=== PATIENT | male | born 1950 | race Caucasian/White ===

== ENCOUNTER 2016-08-28 21:01 | Inpatient (IN) | payer MEDICARE, OTHER ==
--- NOTE | ~2016-08-28 | DS ---
Discharge Summary [facility] [address] [place]. [address] NAME: AVELINO MARIE III : 48 STATUS : DIS IN PAT#: [id number] AGE: 66 ADM/REG DATE : 08/28/16 MR#: [id number] REPORT SERV DATE: 08/31/16 DICTATED BY: SHARRI LEIGH DATE: 08/30/16 REPORT STATUS : Draft TRANSCRIBED BY: MODCharmaine DATE: 08/30/16 ADMISSION DATE: 08/28/2016 DISCHARGE DATE: 08/30/2016 HOSPITAL COURSE: A 66-year-old male with known history of spondylolisthesis, status post lumbar surgery several years ago; known history of questionable alcohol intake, he takes half a pint of Double Whiskey a day. Does not want any Librium or Ativan. Has Ativan at home. Known history of hydrocodone addiction and previous surgeries. Not had any rehab. The patient comes in, primary care doctor, after being overly sedentary, some depression from ex-. Had venous Doppler ultrasound, extensive DVT extending from lower calf of the left all the way up to the midthigh. The patient states he lifts weights and takes testosterone. Placed on IV heparin. Xarelto will be transitioned, as the patient does not want Coumadin, therefore, does not need daily INRs or every week INRs. The patient has high alcohol usage. Placed the patient on Librium. Ativan, did not want. States he will try to lower his drinking and told him the risks. Did not see interaction. Issues with ethanol and Xarelto. Will follow up with Vascular Surgery. The patient did not want any tPA, did not seem to need any. Did not have any compartment syndrome. Did not have any lack of sensation in his left lower extremity. Did not have any overt signs of cyanosis. FOLLOWUP: With PCP in two weeks. Consideration of possible reduction of alcohol as well as depression management. Case Management to speak to the patient about affordability. Discharge home. Xarelto 15 p.o. b.i.d. and discontinue heparin. She has Xarelto filled prior to discharge. DISCHARGE MEDICATIONS: Allopurinol 100 p.o. daily; Xanax 1 mg p.o. t.i.d. p.r.n., has at home; Ativan 2 to 3 mg p.o. q.h.s., has at home. We will try to reduce both benzos as an outpatient. Deferred to PCP. Folic acid 1 mg p.o. daily. Clobetasol. Multivitamin one tablet p.o. daily. Thiamine 100 mg p.o. daily. Get [id number] tadalafil p.r.n., Colace p.r.n., Lortab 10/325 p.o. t.i.d. p.r.n. has at home. We will try to reduce as an outpatient. Yuliana, has as an outpatient. Xarelto 15 p.o. b.i.d. for 21 days and then Xarelto 20 p.o. daily. Would stop the testosterone. Increased risk of DVT. DISCHARGE DIAGNOSES: Acute deep vein thrombosis, alcohol use in the past, gout, depression, spondylolisthesis. All questions were answered. Took well over 30 minutes to do. WST/MODL Discharge Summary [address] [address] NAME: AVELINO MARIE III : 48 STATUS : DIS IN PAT#: [id number] AGE: 66 ADM/REG DATE : 08/28/16 MR#: [id number] REPORT SERV DATE: 08/31/16 DICTATED BY: SHARRI LEIGH DATE: 08/30/16 REPORT STATUS : Draft TRANSCRIBED BY: MODL DATE: 08/30/16 Sharri Leigh DO / [id number] CC: DO JUAN ANTONIO Ventura
--- NOTE | ~2016-08-28 | HP ---
History And Physical [facility] [address] [facility] [place]. [address] NAME: AVELINO MARIE III : 48 STATUS : ADM IN [facility]#: [id number] AGE: 66 ADM/REG DATE : 08/28/16 MR#: [id number] REPORT SERV DATE: 08/29/16 DICTATED BY: LINDA KISER DATE: 08/28/16 REPORT STATUS : Draft TRANSCRIBED BY: TANIA DATE: 08/28/16 DATE OF ADMISSION: 08/28/2016 CHIEF COMPLAINT: Acute left lower extremity DVT. HISTORY OF PRESENT ILLNESS: This is a 66-year-old male with a past medical history of spondylolisthesis, status post lumbar surgery several years ago. However, the patient follows up with a primary care in [place], Dr. Viktor Miller, but currently lives in [place]. The patient states over the past several months. He has been more sedentary sitting six to seven hours a day working on his taxes and performing a lot of reading and later developed increased swelling of his left lower extremity with some discomfort with edema extending past his knee. The patient was seen by his primary care physician, Dr. Viktor Miller at [place] today who suspected a DVT and sent the patient for an outpatient. The patient had a venous Doppler ultrasound with report of an extensive DVT extending from lower calf all the way up to mid thigh. The patient however did not receive a dose of Lovenox at the hospital facility but the patient wanted to return back to [place] to be admitted to [facility] and drove back to [place] and admitted to [facility]. Apparently, the patient was already traveling on the highway when the direct admit was called in to [facility]. The patient currently denies any chest pain. No shortness of breath. He does state that he does lift weights about 3 times a week but mostly sedentary for the majority of the day. With the findings of acute DVT up to mid thigh, PCP was considering Vascular Surgery evaluation with a transfer. PAST MEDICAL HISTORY: Spondylolisthesis and per patient he admits to hydrocodone addiction from previous surgeries and has not had any rehab. PAST SURGICAL HISTORY: Lumbar fusion L4 through S1, bilateral knee repair, and right shoulder replacement. FAMILY HISTORY: Denies any history of clots in the family. There is a history of prostate cancer in grandfather and testicular cancer, son. SOCIAL HISTORY: No tobacco but drinks approximately half a pint of double whiskey a day. He denies any illicit drugs. 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 HOME MEDICATIONS: Please refer to MAR per pharmacy. PHYSICAL EXAMINATION: Temperature of 97.3, blood pressure 160/91 with a pulse of 84, saturating 97% on room air, and respiratory rate of 16. GENERAL: The patient is alert oriented x3, very pleasant. HEENT: Pupils equal, round, and reactive to light. Extraocular muscles are intact. Moist mucous membranes. CARDIOVASCULAR: S1, S2. Regular rate and rhythm. No murmurs, rubs, or gallops. No JVD. History And Physical [address] [address] NAME: AVELINO MARIE III : 48 STATUS : ADM IN [facility]#: [id number] AGE: 66 ADM/REG DATE : 08/28/16 MR#: [id number] REPORT SERV DATE: 08/29/16 DICTATED BY: LINDA KISER DATE: 08/28/16 REPORT STATUS : Draft TRANSCRIBED BY: TANIA DATE: 08/28/16 RESPIRATORY: Clear to auscultation bilaterally. No wheezes or crackles. No signs of tachypnea. ABDOMEN: Positive bowel sounds. Soft, nontender. No rebound. No fluid wave. EXTREMITIES: 2+ pulse, with 2+ edema of the left lower extremity up to mid thigh. NEUROLOGIC: Cranial nerves II through XII grossly intact. Moves all four extremities. No neuro focal deficits. HOME MEDICATIONS: Allopurinol 100 mg p.o. q.a.m., Xanax 1 mg p.o. three times a day p.r.n., Soma 350 mg p.o. three times a day p.r.n., Colace 100 mg p.o. at bedtime, [place] 10 x 325 one tab p.o. three times a day p.r.n., Ativan 2-3 mg p.o. at bedtime as scheduled, Cialis 5 mg p.o. daily, testosterone 200 mg p.o. every 14 days, clobetasol topically at bedtime, and unknown [id number] supplements. LABORATORY DATA: Currently pending. ASSESSMENT AND PLAN: 1. Acute lower left extremity DVT. 2. Alcohol, high alcohol usage. 3. We will hold the patient's testosterone, which most likely increased the risk of the patient on DVT as well as sedentary lifestyle. I will start on IV heparin drip. Also we will send for medical records from primary care's office for the patient's venous Doppler ultrasound. Primary care was considering Vascular Surgery consultation for CVT. I do not feel it is warranted at this time other than anticoagulation. However, we will leave the final decision up to Dr. Cheatham, who will attend to this patient's care. Also, we will have the patient on thiamine and Ativan p.r.n. for DT precautions. 4. The patient and family have been updated on importance of compliance with medications, and risks and benefits, as well as risks of DVT, which can be fatal if not treated. ELIEZER/MODL Linda Kiser M.D. / [id number] CC: Darvin Centeno
[~2016-08-28 21:01] MED LIST: ATIVAN2 MG PO; NORCO1 TA2 PO; SOMA250 MG PO; Z100 PO
[2016-08-28] MEDS ORDERED: CIALIS5 MG PO (21:45)
[2016-08-28] MEDS ORDERED: DSS PO (21:46)
[2016-08-28] MEDS ORDERED: ATIVAN2 MG PO (21:46)
[2016-08-28] MEDS ORDERED: XANAX1 MG PO (21:46)
[2016-08-28] MEDS ORDERED: NORCO1 TAB PO (22:03)
[2016-08-28] MEDS ORDERED: SOMATAB PO (22:04)
[2016-08-28] MEDS ORDERED: TESTOST CYP100 MG/ML PO (22:07)
[2016-08-28] MEDS ORDERED: CLOBETASOL TOP (22:08)
[2016-08-28] MEDS ORDERED: Z100 PO (22:09)
[2016-08-28] MEDS ORDERED: SUPPLEMENT PO (22:10)
[2016-08-28 22:36] LABS: BASOPHILS 0.3 %; BASOPHILS ABSOLUTE 0.02 10/3/uL (0.0-0.16); EOSINOPHILS 3.5 %; HEMOGLOBIN 14.2 g/dL (13.6-17.8); LYMPHOCYTES 24.3 %; LYMPHOCYTES ABSOLUTE 1.39 10/3/uL (0.67-4.30); MEAN CORPUS HGB CONC 35.5 g/dL (32.0-36.0); MEAN CORPUSCULAR HEMOGLOB 33.7 pg (26.0-34.0); MEAN PLATELET VOLUME 8.8 fL (9.2-13.0); MONOCYTES 6.5 %; MONOCYTES ABSOLUTE 0.37 10/3/uL (0.21-1.20); NEUTROPHILS 65.4 %; NEUTROPHILS ABSOLUTE 3.74 10/3/uL (2.02-8.40); PLATELET COUNT 127 10/3/uL (150-400); RBC DISTRIBUTION WIDTH 13.3 % (12.0-16.0); RED CELL COUNT 4.21 10/6/uL (4.7-6.1); WHITE BLOOD CELLS 5.7 10/3/uL (4.5-10.5)
[2016-08-28 22:39] LABS: MANUAL DIFF NO %
[2016-08-28 22:44] LABS: INTERNATIONAL NORMAL RATI 1.3 UNITS (-); PROTIME (NOT ORD) 15.7 SEC (12.0-14.5)
[2016-08-28 22:51] LABS: ALBUMIN 3.6 G/DL (3.5-5.0); ALKALINE PHOSPHATASE 113 U/L (45-117); BUN (BLOOD UREA NITROGEN) 12 MG/DL (6-23); CALCIUM, SERUM 8.5 MG/DL (8.5-10.4); CHLORIDE, SERUM 109 MMOL/L (96-112); CO2 (CARBON DIOXIDE) 26 MMOL/L (24-34); CREATININE 1.09 MG/DL (0.70-1.30); GFR AFRICAN AMERICAN 81 ML/MIN (>=60); GFR NON AFRICAN AMERICAN 70 ML/MIN (>=60); GLOBULIN 3.5 G/DL (2.5-4.1); GLUCOSE, SERUM 84 MG/DL (60-99); POTASSIUM, SERUM 4.2 MMOL/L (3.5-5.3); SGOT(AST) 22 U/L (5-40); SGPT(ALT) 24 U/L (5-65); SODIUM, SERUM 143 MMOL/L (135-148); TOTAL BILIRUBIN 0.9 MG/DL (0-1.2); TOTAL PROTEIN 7.1 G/DL (6.0-8.5)
[2016-08-29 05:55] LABS: BASOPHILS 1.1 %; BASOPHILS ABSOLUTE 0.05 10/3/uL (0.0-0.16); EOSINOPHILS 6.7 %; EOSINOPHILS ABSOLUTE 0.31 10/3/uL (0.0-0.53); HEMATOCRIT 39.7 % (40.0-51.0); LYMPHOCYTES 36.6 %; MANUAL DIFF NO %; MEAN CORPUS HGB CONC 35.3 g/dL (32.0-36.0); MEAN CORPUSCULAR VOLUME 96.4 fL (80-100); MEAN PLATELET VOLUME 9.1 fL (9.2-13.0); MONOCYTES 5.8 %; MONOCYTES ABSOLUTE 0.27 10/3/uL (0.21-1.20); NEUTROPHILS 49.8 %; NEUTROPHILS ABSOLUTE 2.31 10/3/uL (2.02-8.40); PLATELET COUNT 126 10/3/uL (150-400); RBC DISTRIBUTION WIDTH 13.3 % (12.0-16.0); RED CELL COUNT 4.12 10/6/uL (4.7-6.1); WHITE BLOOD CELLS 4.6 10/3/uL (4.5-10.5)
[2016-08-29 06:01] LABS: INTERNATIONAL NORMAL RATI 1.3 UNITS (-)
[2016-08-29 07:19] LABS: PARTIAL THROMBO TIME > 150.0 SEC (22.5-37.2)
[2016-08-30 07:07] LABS: BASOPHILS 0.7 %; BASOPHILS ABSOLUTE 0.03 10/3/uL (0.0-0.16); EOSINOPHILS ABSOLUTE 0.29 10/3/uL (0.0-0.53); HEMATOCRIT 39.9 % (40.0-51.0); HEMOGLOBIN 14.2 g/dL (13.6-17.8); IMMATURE GRANULOCYTES 0.2 %; IMMATURE GRANULOCYTES ABSOLUTE 0.01 10/3/uL (0.0-0.11); LYMPHOCYTES 31.5 %; MEAN CORPUS HGB CONC 35.6 g/dL (32.0-36.0); MEAN CORPUSCULAR HEMOGLOB 33.7 pg (26.0-34.0); MEAN CORPUSCULAR VOLUME 94.8 fL (80-100); MEAN PLATELET VOLUME 8.7 fL (9.2-13.0); MONOCYTES 5.8 %; MONOCYTES ABSOLUTE 0.24 10/3/uL (0.21-1.20); NEUTROPHILS 54.8 %; NEUTROPHILS ABSOLUTE 2.26 10/3/uL (2.02-8.40); PLATELET COUNT 137 10/3/uL (150-400); RBC DISTRIBUTION WIDTH 13.3 % (12.0-16.0); RED CELL COUNT 4.21 10/6/uL (4.7-6.1); WHITE BLOOD CELLS 4.1 10/3/uL (4.5-10.5)
[2016-08-30 07:10] LABS: MANUAL DIFF NO %
[2016-08-30 07:21] LABS: BUN (BLOOD UREA NITROGEN) 11 MG/DL (6-23); CALCIUM, SERUM 8.4 MG/DL (8.5-10.4); CHLORIDE, SERUM 109 MMOL/L (96-112); CO2 (CARBON DIOXIDE) 26 MMOL/L (24-34); CREATININE 0.92 MG/DL (0.70-1.30); GFR AFRICAN AMERICAN 99 ML/MIN (>=60); GFR NON AFRICAN AMERICAN 86 ML/MIN (>=60); GLUCOSE, SERUM 90 MG/DL (60-99); PHOSPHORUS, SERUM 3.4 MG/DL (2.5-4.5); POTASSIUM, SERUM 4.2 MMOL/L (3.5-5.3); SODIUM, SERUM 144 MMOL/L (135-148)
[2016-08-30] MEDS ORDERED: TEMOVATE CREAM30 GM TOP (13:41)
[2016-08-30] MEDS ORDERED: MVI PO (13:42)
[2016-08-30] MEDS ORDERED: FOLIC PO (13:42)
[2016-08-30] MEDS ORDERED: B1100 PO (13:43)
[2016-08-30] MEDS ORDERED: XARELTO20 MG PO (13:44)
[2016-08-30] MEDS ORDERED: XARELTO15 MG PO (13:44)
== END 2016-08-30 17:03 | disposition home or self-care (01) | DRG 300 ==
LOC: 6NO 21:01
PROVIDERS: Internal Medicine
DX: I82.402 Acute embolism and thrombosis of unspecified deep veins of left lower extremity (principal); F11.20 Opioid dependence, uncomplicated; F32.9 Major depressive disorder, single episode, unspecified; T38.7X5A Adverse effect of androgens and anabolic congeners, initial encounter; M10.9 Gout, unspecified; Z98.1 Arthrodesis status; Z80.42 Family history of malignant neoplasm of prostate; Z80.43 Family history of malignant neoplasm of testis; Z72.89 Other problems related to lifestyle; Z96.611 Presence of right artificial shoulder joint
CPT/HCPCS: 36415; 80048; 80053; 82962; 83735; 84100; 85014; 85018; 85025; 85610; 85730; 86850; 86900; 86901; A9270-GY